=== PATIENT | female | born 1990 | race Caucasian/White ===

== ENCOUNTER → 2023-01-16 10:37 | Outpatient (CLI) | payer OTHER, SELFPAY ==
--- NOTE | 2023-01-16 | DI.US.S_ITS ---
PROCEDURE: US ABDOMEN LIMITED INDICATIONS: ADENOMYOMATOSIS ON CT IVP TECHNIQUE: Real-time focused scanning was performed of the abdomen, with image documentation. COMPARISON: None. FINDINGS: Visualized pancreas unremarkable sonographically. No gallstones, gallbladder wall thickening, or sonographic Joel sign. No biliary ductal dilation extrahepatic bile duct measures 3 mm. Liver length of 17.2 cm. The liver is echogenic. IMPRESSION: 1. No evidence of gallbladder adenomyomatosis identified sonographically. 2. The liver is echogenic, a nonspecific finding commonly seen in the setting of steatosis. Dictated by: Austin Kennedy M.D. on 01/16/2023 at 13:56 Approved by: Austin Kennedy M.D. on 01/16/2023 at 13:58
== END ==
PROVIDERS: Referring Provider Nurse Practitioner Primary Care; Visit Provider Nurse Practitioner Primary Care
DX: R93.3 Abnormal findings on diagnostic imaging of other parts of digestive tract (principal)
CPT/HCPCS: 76705